=== PATIENT | female | born 1955 | race African-American/Black ===

== ENCOUNTER 2017-11-28 08:29 | Emergency (ER) | payer BC ==
[~2017-11-28] VITALS: Ht 167.6 cm; Wt 86.0 kg
[~2017-11-28 08:29] MED LIST: ASPI1TAB69 PO; DIOV160T9 PO; FOLI800T PO; LATA0.002 EACH EYE; MULT-12 PO; PROBCAP15 PO; ROSU10 PO; VITA100018 PO
[2017-11-28 08:30] VITALS: BP 111/50; PULSE 68; RESP 17; TEMP 97.3; O2SAT 100
--- NOTE | 2017-11-28 08:50 | PD ---
HPI Chief Complaint: GI Complaint Time Seen by Provider: 08:40 Travel History International Travel<30 days: No Contact w/Intl Traveler<30days: [place] Country Traveled to: [place] Traveled to known affect area: No History of Present Illness HPI This 62-year-old female is complaining of vomiting and diarrhea. She says her symptoms started around 5:00 this morning. She's vomited about 3 times and has had 4 bouts of diarrhea. She has a history of hypertension. She is says she is feeling lightheaded as though she might faint though she has not actually fainted. She is not aware of fever or chills. She has recently been diagnosed with breast cancer but has not received any chemotherapy is not on any treatment right now PFSH Past Medical History Arthritis: Yes (wrist/right thumb) Chemotherapy: No Diabetes: No (family hx(mother)) Diminished Hearing: No Hypertension: Yes ?: Not : 4 Para: 2 Miscarriage: 2 Tubal Ligation: Yes (1985) Past Surgical History Pacemaker: No Tonsillectomy: Yes Other Surgery: Yes (tummy tuck) Social History Alcohol Use: Yes (OCASSIONAL WINE) Tobacco Use: No Substance Use: No Allergies-Medications (Allergen,Severity, Reaction): Coded Allergies: latex (Unverified Allergy, Mild, Itching, 11/28/17) morphine (Verified Adverse Reaction, Severe, SEVERE VOMITING, 11/28/17) Reported Meds & Prescriptions Reported Meds & Active Scripts Active Zofran Odt (Ondansetron Odt) 4 Mg Tab 4 Mg SL Q6HR PRN Reported Trubiotics (Probiotic Product) 1 Cap Cap 1 Cap PO DAILY Alive Womens 50+ (Multiple Vitamins W/ Minerals) 1 Tab Tab 1 Tab PO DAILY Folic Acid 800 Mcg Tab 800 Mcg PO DAILY Latanoprost Opth Drops (Latanoprost) 0.005% Drops 1 Drop EACH EYE HS Refrigerate until opened. Crestor (Rosuvastatin Calcium) 10 Mg Tab 10 Mg PO DAILY Diovan Hct (Valsartan-Hydrochlorothiazide) 160-25 Mg Tab 1 Tab PO DAILY Vitamin D3 (Cholecalciferol) 1,000 Unit Tab 1,000 Units PO DAILY Aspirin 81 Mg Tabdr 81 Mg PO DAILY Review of Systems General / Constitutional: No: Fever, Chills Eyes: No: Diploplia HENT: Positive: Lightheadedness, No: Headaches Cardiovascular: No: Chest Pain or Discomfort, Palpitations Respiratory: No: Cough, Shortness of Breath Gastrointestinal: Positive: Nausea, Vomiting, Diarrhea, Abdominal Pain Genitourinary: No: Urgency, Frequency Musculoskeletal: No: Myalgias Skin: No Rash, No Itching Neurologic: Positive: Weakness Endocrine: No: Heat Intolerance, Cold Intolerance Hematologic/Lymphatic: No: Easy Bruising Physical Exam Narrative GENERAL: Well-developed female SKIN: Focused skin assessment warm/dry. HEAD: Atraumatic. Normocephalic. EYES: Pupils equal and round. No scleral icterus. No injection or drainage. ENT: No nasal bleeding or discharge. Mucous membranes pink and moist. NECK: Trachea midline. No JVD. CARDIOVASCULAR: Regular rate and rhythm. No murmur appreciated. RESPIRATORY: No accessory muscle use. Clear to auscultation. Breath sounds equal bilaterally. GASTROINTESTINAL: Abdomen soft, non-tender, nondistended. Hepatic and splenic margins not palpable. MUSCULOSKELETAL: No obvious deformities. No clubbing. No cyanosis. No edema. NEUROLOGICAL: Awake and alert. No obvious cranial nerve deficits. Motor grossly within normal limits. Normal speech. PSYCHIATRIC: Appropriate mood and affect; insight and judgment normal. Data Data Last Documented VS Vital Signs Date Time Temp Pulse Resp B/P (MAP) Pulse Ox O2 Delivery O2 Flow Rate FiO2 11/28/17 08:30 97.3 68 17 111/50 (70) 100 Orders Orders Electrocardiogram (11/28/17 08:46) Complete Blood Count With Diff (11/28/17 08:46) Basic Metabolic Panel (Bmp) (11/28/17 08:46) Sodium Chlor 0.9% 1000 Ml Inj (Ns 1000 M (11/28/17 09:00) Ondansetron Inj (Zofran Inj) (11/28/17 09:00) Potassium Chloride (Kcl) (11/28/17 09:45) Labs Laboratory Tests Test 11/28/17 08:50 White Blood Count 7.2 TH/MM3 Red Blood Count 4.37 MIL/MM3 Hemoglobin 13.6 GM/DL Hematocrit 41.5 % Mean Corpuscular Volume 95.0 FL Mean Corpuscular Hemoglobin 31.3 PG Mean Corpuscular Hemoglobin Concent 32.9 % Red Cell Distribution Width 12.9 % Platelet Count 180 TH/MM3 Mean Platelet Volume 9.0 FL Neutrophils (%) (Auto) 84.1 % Lymphocytes (%) (Auto) 7.2 % Monocytes (%) (Auto) 5.7 % Eosinophils (%) (Auto) 0.5 % Basophils (%) (Auto) 2.5 % Neutrophils # (Auto) 6.1 TH/MM3 Lymphocytes # (Auto) 0.5 TH/MM3 Monocytes # (Auto) 0.4 TH/MM3 Eosinophils # (Auto) 0.0 TH/MM3 Basophils # (Auto) 0.2 TH/MM3 CBC Comment DIFF FINAL Differential Comment Blood Urea Nitrogen 18 MG/DL Creatinine 1.10 MG/DL Random Glucose 127 MG/DL Calcium Level 9.7 MG/DL Sodium Level 139 MEQ/L Potassium Level 3.3 MEQ/L Chloride Level 101 MEQ/L Carbon Dioxide Level 26.7 MEQ/L Anion Gap 11 MEQ/L Estimat Glomerular Filtration Rate 61 ML/MIN [facility] Medical Decision Making Medical Screen Exam Complete: Yes Emergency Medical Condition: Yes Medical Record Reviewed: Yes Differential Diagnosis Differential includes gastroenteritis, food poisoning, dehydration Narrative Course Hemoglobin is 13.6 with a white count of 7.2. Sodium is 139. Potassium 3.3. BUNs is 18 with creatinine of 1.1. Patient is given some IV fluids and Zofran with improvement of symptoms. She has been given some potassium. She'll be released with prescription for Zofran Diagnosis Primary Impression: Acute gastroenteritis Scripts Ondansetron Odt (Zofran Odt) 4 Mg Tab 4 MG SL Q6HR Y for Nausea/Vomiting, #10 TAB 0 Refills Prov: Goran Krause MD 11/28/17 Disposition: 01 DISCHARGE HOME Condition: Stable Goran Krause MD Nov 28, 2017 08:50
[2017-11-28] MEDS ORDERED: ONDANSETRON HCL 4 MG/2 ML VIAL IV PUSH ONE (09:00)
[2017-11-28] MEDS ORDERED: SODIUM CHLOR 0.9% 1000 ML INJ 1,000 ML IV ONE (09:00)
[2017-11-28 09:05] LABS: AUTOMATED NEUTROPHIL # 6.1 TH/MM3 (1.8-7.7); BASOPHIL # 0.2 TH/MM3 (0-0.2); BASOPHIL % 2.5 % (0.0-2.0); EOSINOPHIL % 0.5 % (0.0-4.0); HEMATOCRIT 41.5 % (35.0-46.0); HEMOGLOBIN 13.6 GM/DL (11.6-15.3); LYMPH % 7.2 % (9.0-44.0); LYMPHOCYTE # 0.5 TH/MM3 (1.0-4.8); MEAN CORPUSCULAR HEMOGLOBIN 31.3 PG (27.0-34.0); MEAN CORPUSCULAR HGB CONC 32.9 % (32.0-36.0); MONO % 5.7 % (0.0-8.0); MONOCYTE # 0.4 TH/MM3 (0-0.9); NEUT % 84.1 % (16.0-70.0); PLATELET COUNT 180 TH/MM3 (150-450); RED BLOOD COUNT 4.37 MIL/MM3 (4.00-5.30); RED CELL DISTRIBUTION WIDTH 12.9 % (11.6-17.2); WHITE BLOOD COUNT 7.2 TH/MM3 (4.0-11.0)
[2017-11-28 09:09] LABS: CALCIUM 9.7 MG/DL (8.5-10.1)
[2017-11-28 09:10] LABS: BICARBONATE 26.7 MEQ/L (21.0-32.0)
[2017-11-28 09:13] LABS: CREATININE 1.1 MG/DL (0.50-1.00)
[2017-11-28] MEDS ORDERED: POTASSIUM CHLORIDE 20 MEQ CONTROLLED RELEASE TAB PO ONE (09:45)
[2017-11-28] MEDS ORDERED: ZOFR4TAB3 SL (10:20)
[2017-11-28 10:55] VITALS: BP 110/68
--- NOTE | 2017-11-28 22:56 | EKG ---
Date Performed: 11/28/2017 Time Performed: 09:04:03 PTAGE: 62 years EKG: Sinus rhythm NONSPECIFIC T-WAVE ABNORMALITY BORDERLINE ECG PREVIOUS TRACING : 03/26/2014 15.49 Since the prior tracing, there has been no significant villavicencio DOCTOR: Ananda Claudio Interpretating Date/Time 11/28/2017 22:55:23
== END 2017-11-28 10:55 | disposition home or self-care (01) ==
LOC: PHED 08:29
DX: K52.9 Noninfective gastroenteritis and colitis, unspecified (principal); R42 Dizziness and giddiness; R94.31 Abnormal electrocardiogram [ECG] [EKG]; I10 Essential (primary) hypertension; C50.919 Malignant neoplasm of unspecified site of unspecified female breast
CPT/HCPCS: 80048; 85025; 93005; 96361; 96374; 99284; J2405; J7030

== ENCOUNTER 2017-12-06 07:23 | Day surgery (SDC) | payer BC ==
[~2017-12-06] VITALS: Ht 167.6 cm; Wt 80.9 kg
[~2017-12-06 07:23] MED LIST changes: +ZOFR4TAB3 SL
[2017-12-06 07:42] VITALS: BP 129/89; PULSE 75; RESP 20; TEMP 98.3
[2017-12-06] MEDS ORDERED: ASPI-516 CHEW (07:44)
[2017-12-06] MEDS ORDERED: VANCOMYCIN 1000 MG/NS 250 ML - implanted port/tunneled catheter IV SCH ×2 (07:45)
[2017-12-06] MEDS ORDERED: SODIUM CHLORIDE 0.9% 1000 ML IV SCH (07:45)
[2017-12-06] MEDS ORDERED: CHLORHEXIDINE GLUCONATE 2 % 1 PACK (2 CLOTHS) TOPICAL SCH (07:45)
[2017-12-06] MEDS ORDERED: POVIDONE IODINE 5% (ANTISEPSIS KIT) 4 APPLICATIONS EACH NARE SCH (07:45)
[2017-12-06] MEDS ORDERED: ceFAZolin 2 GM PREMIX 50 ML - implanted port/tunneled catheter insertion IV SCH (07:45)
[2017-12-06 08:18] LABS: PROTHROMBIN TIME - PATIENT 10.2 SEC (9.8-11.6)
[2017-12-06] MEDS ORDERED: MIDAZOLAM HCL 2 MG/2 ML VIAL ONE (09:41)
--- NOTE | 2017-12-06 10:49 | PD.RAD ---
Post Procedure Progress Note Pre Procedure Diagnosis: (1) Breast cancer in female Post Procedure Diagnosis: (1) Breast cancer in female Procedure Date: Dec 06, 2017 Supervising Radiologist: Colin Hyman JR Proceduralist/Assist: Carla Shah, RT(R)(), Yessica Sutton RT(R) Anesthesia: Conscious Sedation Plan of Activity Patient to Unit: ROPU Patient Condition: Good See PACS Report for procedural detail/treatment Central Venous Access Device Procedure 1 Left Internal Jugular Infusaport Placement single lumen Kiswahili: 8 Findings: Left port in good position and functions well. OK to use. Plan F/U with IR or a physician in 10-14 days for a site check. Jr. Boogie,Colin Martinez MD Dec 06, 2017 10:49
[2017-12-06 11:00] VITALS: BP 111/68; PULSE 73; RESP 18; TEMP 97.8; O2SAT 94
[2017-12-06] MEDS ORDERED: SODIUM CHLORIDE 0.9% FLUSH 10 ML FLUSH IVF PRN (11:00)
[2017-12-06 11:15] VITALS: BP 94/64; PULSE 56; RESP 18; O2SAT 96
--- NOTE | 2017-12-06 11:15 | RADRPT ---
EXAM DATE/TIME: 12/06/2017 10:33 [facility] COMPARISON: No previous studies available for comparison. INDICATIONS : Patient presents with invasive right breast cancer in need of port placement for chemo therapy. MEDICAL HISTORY : Breast Cancer HTN SURGICAL HISTORY : Left ankle Fx Tubal Ligation ENCOUNTER: Initial ACUITY: 1 month PAIN SCORE: 0/10 FLUORO TIME: 1.3 minutes IMAGE SERIES: 1 SEDATION TIME: 30 minutes ACCESS: Left internal jugular vein SEDATION: 1.) 3.5 mg midazolam (Versed) IV 2.) 175 mcg fentanyl (Sublimaze) IV Prophylactic antibiotics were administered with appropriate pre-procedure timing. Vancomycin within 2 hours of procedure, Ancef (or alternative) within 1 hour of procedure. DEVICE: 1. 8 Slovenian single lumen cm [id number] PROCEDURE : 1. Continuous pulse oximetry and EKG monitoring. 2. Intravenous conscious sedation. 3. Ultrasound guidance for venous access. 4. Fluoroscopic guided implantable central venous port placement. The patient was placed supine. The neck was prepped in sterile fashion. Full sterile technique was u sed, including cap, mask, sterile gloves and gown, and a large sterile sheet. Hand hygiene and 2% ch lorhexidine Betadine was utilized per protocol for cutaneous antisepsis with appropriate dry time for site. Sterile gel and sterile probe cover were utilized for ultrasound guidance. The skin and sub cutaneous tissues were infiltrated with local anesthetic solution. Under direct ultrasound guidance, central venous access was accomplished in the targeted vessel. The ultrasound images depicting access guidance were stored and saved to PACS for permanent record. A s ubcutaneous pocket was created using blunt dissection. The port was introduced to the pocket. The c atheter tubing was fed through a subcutaneous tunnel to the venotomy site. The catheter tubing was c ut to a suitable length and then was introduced through a valved Peel-Away sheath and positioned with catheter tubing tip at the cavo-atrial junction level. The pocket incision was closed with subcutic ular Vicryl suture. Steri-Strips were applied. The port was flushed and locked with heparin solutio n per protocol. Sterile dressing was applied to the site. The patient tolerated the procedure well. Conscious sedation was performed with the prescribed dosages and duration as above in the presence of an independent trained radiology nurse to assist in the monitoring of the patient. EKG and oximetry remained stable throughout the procedure. The patient tolerated the procedure well and there were no complications. The patient was sent to post anesthesia recovery in stable condition. CONCLUSION: Uncomplicated ultrasound and fluoroscopic guided implanted central venous port catheter placement as described in detail above. An 8 Slovenian Power port was placed. Colin Hyman Jr., MD on December 06, 2017 at 11:12 Board Certified Radiologist. This report was verified electronically.
[2017-12-06 11:45] VITALS: BP 100/60; PULSE 55; RESP 18; O2SAT 98
[2017-12-06 12:15] VITALS: BP 117/71; PULSE 59; RESP 18; O2SAT 98
[2017-12-06 12:45] VITALS: BP 115/60; PULSE 64; RESP 18; O2SAT 96
== END 2017-12-06 13:15 | disposition home or self-care (01) ==
LOC: HROP 07:23 → HRIP 07:33 → HROP 13:15
PROVIDERS: ATTEND Internal Medicine Hematology & Oncology
DX: C50.211 Malignant neoplasm of upper-inner quadrant of right female breast (principal); Z17.0 Estrogen receptor positive status [ER+]; I10 Essential (primary) hypertension; E78.00 Pure hypercholesterolemia, unspecified; Z01.818 Encounter for other preprocedural examination
CPT/HCPCS: 36561; 76937; 77001; 85610; 85730; 99152; 99153; C1788; J0690; J1642; J2250; J3010; J3370; J7030; J7050

== ENCOUNTER 2018-04-15 07:32 | Day surgery (SDC) | payer BC ==
[~2018-04-15] VITALS: Ht 167.6 cm; Wt 80.9 kg
[~2018-04-15 07:32] MED LIST changes: +ASPI-516 CHEW; -ASPI1TAB69 PO; -FOLI800T PO; -MULT-12 PO; -ZOFR4TAB3 SL
[2018-04-15 07:48] VITALS: BP 140/76; PULSE 66; RESP 18; TEMP 98.5; O2SAT 93
[2018-04-15] MEDS ORDERED: ANAS1TAB PO (07:58)
[2018-04-15] MEDS ORDERED: MULT-65 PO (07:58)
[2018-04-15] MEDS: ceFAZolin 2 GM PREMIX 50 ML - implanted port removal IV SCH ×2 (08:07→10:57)
[2018-04-15] MEDS ORDERED: SODIUM CHLORIDE 0.9% 1000 ML IV SCH (08:15)
[2018-04-15 08:28] LABS: AUTOMATED NEUTROPHIL # 1.1 TH/MM3 (1.8-7.7); EOSINOPHIL # 0.1 TH/MM3 (0-0.4); EOSINOPHIL % 3.5 % (0.0-4.0); HEMATOCRIT 37.1 % (35.0-46.0); HEMOGLOBIN 12.4 GM/DL (11.6-15.3); LYMPH % 48.3 % (9.0-44.0); LYMPHOCYTE # 1.3 TH/MM3 (1.0-4.8); MEAN CELL VOLUME 96.8 FL (80.0-100.0); MEAN CORPUSCULAR HEMOGLOBIN 32.5 PG (27.0-34.0); MEAN CORPUSCULAR HGB CONC 33.6 % (32.0-36.0); MEAN PLATELET VOLUME 8.7 FL (7.0-11.0); MONOCYTE # 0.2 TH/MM3 (0-0.9); NEUT % 40.2 % (16.0-70.0); PLATELET COUNT 168 TH/MM3 (150-450); RED BLOOD COUNT 3.83 MIL/MM3 (4.00-5.30); RED CELL DISTRIBUTION WIDTH 14.5 % (11.6-17.2); WHITE BLOOD COUNT 2.7 TH/MM3 (4.0-11.0)
[2018-04-15 08:41] LABS: PROTHROMBIN TIME - PATIENT 10.5 SEC (9.8-11.6)
[2018-04-15] MEDS ORDERED: LIDOCAINE 1%/EPINEPHrine 1:100,000 SOLN 20 ML VIAL ONE (09:08)
[2018-04-15] MEDS ORDERED: SODIUM BICARBONATE 8.4% INJ 50 ML ONE (09:08)
[2018-04-15] MEDS ORDERED: MIDAZOLAM HCL 5 MG/5 ML VIAL ONE (09:22)
[2018-04-15] MEDS ORDERED: fentaNYL CITRATE 250 MCG/5 ML AMP ONE (09:22)
[2018-04-15 10:03] VITALS: BP 111/76; PULSE 66; RESP 18; TEMP 97.2; O2SAT 97
--- NOTE | 2018-04-15 10:04 | PD.RAD ---
Post Procedure Progress Note Pre Procedure Diagnosis: (1) Breast cancer in female Post Procedure Diagnosis: (1) Breast cancer in female Procedure Date: Apr 15, 2018 Supervising Radiologist: Gabe Albright Anesthesia: Local Plan of Activity Patient to Unit: ROPU Patient Condition: Good Additional Comments: Port removed from the the left chest without difficulty Full dictated report to follow See PACS Report for procedural detail/treatment Gabe Albright MD Apr 15, 2018 10:04
[2018-04-15 10:18] VITALS: BP 114/65; PULSE 62; RESP 16; O2SAT 65; O2SAT 95
[2018-04-15 10:48] VITALS: BP 117/68; PULSE 57; RESP 17; O2SAT 98
[2018-04-15] MEDS ORDERED: ONDANSETRON HCL 4 MG/2 ML VIAL ONE (11:31)
[2018-04-15 11:53] VITALS: BP 118/74; PULSE 58; RESP 17; O2SAT 97
[2018-04-15] MEDS ORDERED: ONDANSETRON HCL 4 MG/2 ML VIAL IV PUSH ONE (12:00)
--- NOTE | 2018-04-15 16:05 | RADRPT ---
INDICATIONS: Patient presents with history of right breast cancer in need of port removal that is no longer needed. CLINICAL DATA: This is the patient's initial encounter. Patient reports that signs and symptoms have been present for 7 - 11 months and indicates a pain score of 0/10. Location: Upper Chest, Laterality: Left MEDICAL/SURGICAL HISTORY: . Right breast cancer historyHTNArthritisDiabetesHigh cholesterol . Right breast biopsy and lumpectomyLymph node biopsyLeft ankle rodTummy tuck (x3)Tubal ligation COMPARISON: No prior exams available for comparison. FLUORO TIME (min): IMAGE SERIES: 0 ACCESS SITE: SEDATION TIME (min): 30 CONTRAST (cc): MEDICATION(S): 4 mg midazolam (Versed) IV 200 mcg fentanyl (Sublimaze) IV Vancomycin within 2 hrs of procedure, Ancef (or alternative) within 1 hr of procedure. PROCEDURE: 1. Removal of [id number]. 2. Conscious sedation with continuous EKG and oximetry monitoring. The risk, benefits and potential complications of [id number] removal were discussed. Written conse nt was obtained. The patient was placed supine. The chest wall was prepped in sterile fashion. Full sterile techniqu e was used, including cap, mask, sterile gloves and gown, and a large sterile sheet. Hand hygiene an d 2% chlorhexidine and/or Betadine/alcohol prep was utilized per protocol for cutaneous antisepsis. The skin and subcutaneous tissues were infiltrated with local anesthetic solution. A small incision w as made, the subcutaneous pocket was opened. The port was dissected from the subcutaneous tissues and easily removed in one piece. The pocket incision was closed with subcuticular Vicryl suture. Steri -Strips were applied. Conscious sedation was performed with the prescribed dosages and duration as above in the presence of an independent trained radiology nurse to assist in the monitoring of the patient. EKG and oximetry remained stable throughout the procedure. The patient tolerated the procedure well and there were no complications. The patient was sent to post anesthesia recovery in stable condition. CONCLUSION: 1. Uncomplicated port removal as above. Electronically signed by: Gabe Albright MD 04/15/2018 4:04 PM EDT
== END 2018-04-15 13:00 | disposition home or self-care (01) ==
LOC: HROP 07:32 → HRIP 07:33 → HROP 13:00
PROVIDERS: ATTEND Internal Medicine Hematology & Oncology
DX: Z45.2 Encounter for adjustment and management of vascular access device (principal); C50.211 Malignant neoplasm of upper-inner quadrant of right female breast; E11.9 Type 2 diabetes mellitus without complications; I10 Essential (primary) hypertension; E78.00 Pure hypercholesterolemia, unspecified; Z01.818 Encounter for other preprocedural examination
CPT/HCPCS: 36590; 85025; 85610; 85730; 99152; 99153; J0690; J2250; J2405; J3010; J7030